=== PATIENT | male | born 1935 | race Caucasian/White ===

== ENCOUNTER → 2016-11-03 | Outpatient (REF) | payer MEDICARE ==
[~2016-11-03] MED LIST: ACET30TAB PO; ASPI81TA85 PO; BISO5TAB5 PO; FEXO180T58 PO; LOSA50TA20 PO; VITA100067 PO; VITA500C24 PO; ZOCO20TA PO
[2016-11-03 11:56] LABS: ALBUMIN 3.9 GM/DL (3.2-5.2); ALBUMIN/GLOBULIN RATIO 1.22 (1.00-1.93); BILIRUBIN,TOTAL 0.6 MG/DL (0.2-1.0); CALCIUM LEVEL 9.1 MG/DL (8.8-10.2); CREATININE FOR GFR 1.46 MG/DL (0.70-1.30); GLOMERULAR FILTRATION RATE 49.2 (>35); POTASSIUM SERUM 4.6 MEQ/L (3.5-5.1); TOTAL PROTEIN 7.1 GM/DL (6.4-8.2)
== END ==
LOC: M SFHCCLAY 07:08
PROVIDERS: ATTEND Family Medicine
DX: E78.00 Pure hypercholesterolemia, unspecified (principal); I10 Essential (primary) hypertension

== ENCOUNTER 2016-12-04 07:03 | Emergency (ER) | payer MEDICARE ==
[~2016-12-04] VITALS: Ht 172.7 cm; Wt 77.3 kg
[2016-12-04] MEDS ORDERED: ZOCO20TA PO (07:16)
[2016-12-04] MEDS ORDERED: LOSA50TA20 PO (07:16)
[2016-12-04] MEDS ORDERED: VITA500C24 PO (07:16)
[2016-12-04] MEDS ORDERED: FEXO180T58 PO (07:16)
[2016-12-04] MEDS ORDERED: BISO5TAB5 PO (07:16)
[2016-12-04] MEDS ORDERED: VITA100067 PO (07:16)
[2016-12-04] MEDS ORDERED: ASPI81TA85 PO (07:16)
--- NOTE | 2016-12-04 08:40 | REP ---
CT abdomen and pelvis without contrast: 12/04/2016. Clinical history: Left lower abdominal pain, question aneurysm. Technique: Noncontrast images with coronal and sagittal reconstructions provided. Findings: CT abdomen: Lung bases show peripheral fibrotic changes bilaterally representing interstitial fibrotic change likely idiopathic pulmonary fibrosis based on this pattern. There is some mild cylindrical bronchiectatic change in both lower lung zones. Heart size not grossly enlarged although the left atrium is. There is no pericardial thickening or effusion. No hiatal hernia. Calcifications in the aortic and mitral valve planes are noted. There is no hepatosplenomegaly, focal hepatic or splenic lesion nor intrahepatic biliary dilatation. The gallbladder shows multiple rim calcified stones, but is not abnormally distended. Common duct not distended. Pancreas without mass, ductal dilatation or other acute finding. Adrenal glands are normal. Kidneys show no hydronephrosis, stone, mass or cyst. There is no hydroureter on the right. There are pelvic phleboliths and indeed a calcification on image 121 of series 201 on the left side is immediately adjacent to but not definitely within the ureter. That ureter is not dilated. Small bowel loops were unremarkable. The aorta shows calcification without aneurysm. There is no periaortic or retroperitoneal pathologic sized lymphadenopathy. Calcified mesenteric node is present in the left mid abdomen on image 99 and 100. There is no evidence of colitis or diverticulitis in the abdomen proper. There are degenerative disc changes with vacuum phenomenon at L3-4 through L5- S1 and old compression deformities from T12-L2, grade 1, all of these without any associated paraspinal hematoma or swelling to suggest acute fracture. There is no spondylolysis or spondylolisthesis but facet arthropathy on both sides of the lower lumbar spine. Visualized ribs intact. CT pelvis: Prostate enlarged and indents the bladder base. The bladder shows no definite wall thickening, mass or stone. No distal ureteral dilatation or stone with a few pelvic phleboliths present. There is no ventral or inguinal hernia nor pathologic sized inguinal adenopathy. No ascites. Visualized small bowel loops and the distal colon through rectosigmoid without colitis or diverticulitis. Bone windows show mild hip degenerative changes. SI joints intact. Pelvis and sacrum without a fracture. Impression: 1. No renal, ureteral or bladder stone and no hydronephrosis. Some perinephric stranding and lower pole cyst on the left. Some minor perinephric stranding of the right nothing acute. 2. Rim-calcified gallstones without biliary dilatation, pancreatic ductal dilatation or other acute finding. 3. Left atrial enlargement but no cardiomegaly or pericardial effusion. 4. Some interstitial pulmonary fibrosis. 5. No colitis, diverticulitis, ascites, adenopathy or other acute finding. Signed by Atul Ybarra MD 12/04/2016 09:12 P
[2016-12-04] MEDS ORDERED: ACET30TAB PO (08:46)
[2016-12-04 09:10] VITALS: BP 142/68
--- NOTE | 2016-12-05 07:44 | ED PDOC ---
Post-Departure Follow-Up radiology report faxed to Fauzia Marr MD Dec 05, 2016 07:44
== END 2016-12-04 09:14 | disposition home or self-care (01) ==
LOC: M ED 07:03
DX: M54.5 Low back pain (principal); I25.2 Old myocardial infarction; Z79.899 Other long term (current) drug therapy; Z79.82 Long term (current) use of aspirin

== ENCOUNTER → 2017-01-19 | Outpatient (REF) | payer MEDICARE ==
[2017-01-19 16:34] LABS: CALCIUM LEVEL 8.7 MG/DL (8.8-10.2); CREATININE FOR GFR 1.35 MG/DL (0.70-1.30); GLOMERULAR FILTRATION RATE 53.9 (>35); POTASSIUM SERUM 4.2 MEQ/L (3.5-5.1)
== END ==
LOC: M SFHCCLAY 13:01
PROVIDERS: ATTEND Family Medicine
DX: I10 Essential (primary) hypertension (principal)
CPT/HCPCS: 80048; G0463

== ENCOUNTER 2017-09-05 09:21 | Observation (INO) | payer MEDICARE ==
[2017-09-05 10:20] LABS: BASO % 0.2 % (0.0-1.0); EOS % 0.4 % (0.0-3.0); HEMATOCRIT 33.8 % (42.0-52.0); HEMOGLOBIN 11.5 g/dl (13.5-17.5); IMMATURE GRANULOCYTE % 0.4 % (0-3.0); LYMPH # 1.2 10^3/uL (1.5-4.5); LYMPH % 11.5 % (24.0-44.0); MEAN CORPUSCULAR HEMOGLOBIN 31.3 pg (27.0-33.0); MEAN CORPUSCULAR VOLUME 91.8 fl (80.0-96.0); MONO # 0.8 10^3/uL (0.0-0.8); NEUTROPHILS # 8.2 10^3/uL (1.8-7.7); NEUTROPHILS % 79.5 % (36.0-66.0); PLATELET COUNT, AUTOMATED 203 10^3/uL (150-450); RED BLOOD COUNT 3.68 10^6/uL (4.30-6.10); RED CELL DISTRIBUTION WIDTH 12.2 % (11.5-14.5); WHITE BLOOD COUNT 10.3 10^3/uL (4.0-10.0)
[2017-09-05 10:29] LABS: BEDSIDE GLUCOSE 121 MG/DL (83-110)
[2017-09-05 11:05] LABS: ANION GAP 5 MEQ/L (8-16); BLOOD UREA NITROGEN 31 MG/DL (7-18); CALCIUM LEVEL 9.1 MG/DL (8.8-10.2); CARBON DIOXIDE LEVEL 27 MEQ/L (21-32); CHLORIDE LEVEL 109 MEQ/L (98-107); CPK CREATINE PHOSPHOKINASE 131 U/L (39-308); CREATININE FOR GFR 1.61 MG/DL (0.70-1.30); GLOMERULAR FILTRATION RATE 43.8 (>35); GLUCOSE, FASTING 106 MG/DL (70-100); POTASSIUM SERUM 5.1 MEQ/L (3.5-5.1); SODIUM LEVEL 141 MEQ/L (136-145); TROPONIN I < 0.02 NG/ML (< 0.10)
[2017-09-05 11:11] LABS: CK-MB VALUE MASS 3.5 NG/ML (<3.6); MB/CK RELATIVE INDEX 2.67 (< OR =4)
[2017-09-05 13:08] LABS: CPK CREATINE PHOSPHOKINASE 105 U/L (39-308); MB/CK RELATIVE INDEX 2.85 (< OR =4); TROPONIN I < 0.02 NG/ML (< 0.10)
[2017-09-05] MEDS ORDERED: ONDANSETRON 4 MG TAB (S0181) PO (16:00)
[2017-09-05] MEDS ORDERED: ONDANSETRON 4MG/2ML VIAL (J2405) IV (16:00)
[2017-09-05] MEDS ORDERED: ACETAMINOPHEN TAB 650MG DOSE (2X325MG) PO (16:00)
[2017-09-05] MEDS: NS 1,000 ML IV (16:31)
[2017-09-05] MEDS: ASPIRIN 81 MG ENTERIC TAB PO (20:02)
[2017-09-05] MEDS: SIMVASTATIN 20 MG TAB PO (20:03)
[2017-09-06 05:57] LABS: BASO % 0.4 % (0.0-1.0); EOS # 0.1 10^3/uL (0.0-0.50); EOS % 1.6 % (0.0-3.0); HEMATOCRIT 31.9 % (42.0-52.0); HEMOGLOBIN 10.9 g/dl (13.5-17.5); IMMATURE GRANULOCYTE % 0.3 % (0-3.0); LYMPH # 1.7 10^3/uL (1.5-4.5); LYMPH % 24.8 % (24.0-44.0); MEAN CORPUSCULAR HEMOGLOBIN 31.3 pg (27.0-33.0); MEAN CORPUSCULAR HGB CONC 34.2 g/dl (32.0-36.5); MEAN CORPUSCULAR VOLUME 91.7 fl (80.0-96.0); MONO # 0.9 10^3/uL (0.0-0.8); MONO % 12.4 % (0.0-5.0); NEUTROPHILS # 4.3 10^3/uL (1.8-7.7); NEUTROPHILS % 60.5 % (36.0-66.0); PLATELET COUNT, AUTOMATED 189 10^3/uL (150-450); RED BLOOD COUNT 3.48 10^6/uL (4.30-6.10); RED CELL DISTRIBUTION WIDTH 12.3 % (11.5-14.5)
[2017-09-06 06:22] LABS: ANION GAP 6 MEQ/L (8-16); BLOOD UREA NITROGEN 26 MG/DL (7-18); CALCIUM LEVEL 8.2 MG/DL (8.8-10.2); CARBON DIOXIDE LEVEL 25 MEQ/L (21-32); CHLORIDE LEVEL 110 MEQ/L (98-107); CREATININE FOR GFR 1.45 MG/DL (0.70-1.30); FREE T4 1.02 NG/DL (0.76-1.46); GLOMERULAR FILTRATION RATE 49.5 (>35); GLUCOSE, FASTING 97 MG/DL (70-100); POTASSIUM SERUM 4.1 MEQ/L (3.5-5.1); SODIUM LEVEL 141 MEQ/L (136-145)
[2017-09-06] MEDS: NS 1,000 ML IV (08:00)
[2017-09-06] MEDS: VITAMIN D 1,000 INTERNATIONAL UNITS TABLET PO (08:38)
[2017-09-06] MEDS: ASCORBIC ACID 500 MG TAB PO (08:38)
[2017-09-06] MEDS: OCUVITE 1 TAB PO (08:38)
[2017-09-06] MEDS: FEXOFENADINE 60 MG TAB PO (08:38)
== END 2017-09-06 13:09 | disposition home or self-care (01) ==
LOC: M ED 09:21 → M ED INP 15:59
DX: R55 Syncope and collapse (principal); I12.9 Hypertensive chronic kidney disease with stage 1 through stage 4 chronic kidney disease, or unspecified chronic kidney disease; N18.3 Chronic kidney disease, stage 3 (moderate); E78.4 Other hyperlipidemia; G32.81 Cerebellar ataxia in diseases classified elsewhere; N17.9 Acute kidney failure, unspecified; R94.6 Abnormal results of thyroid function studies; Z79.82 Long term (current) use of aspirin; Z79.899 Other long term (current) drug therapy
CPT/HCPCS: 71045

== ENCOUNTER → 2017-11-27 | Outpatient (REF) | payer MEDICARE ==
[2017-11-27 11:26] LABS: HEMATOCRIT 35.9 % (42.0-52.0); HEMOGLOBIN 12.1 g/dl (13.5-17.5); MEAN CORPUSCULAR HEMOGLOBIN 31.3 pg (27.0-33.0); MEAN CORPUSCULAR HGB CONC 33.7 g/dl (32.0-36.5); MEAN CORPUSCULAR VOLUME 92.8 fl (80.0-96.0); PLATELET COUNT, AUTOMATED 223 10^3/uL (150-450); RED BLOOD COUNT 3.87 10^6/uL (4.30-6.10); RED CELL DISTRIBUTION WIDTH 11.9 % (11.5-14.5); WHITE BLOOD COUNT 7.9 10^3/uL (4.0-10.0)
[2017-11-27 11:37] LABS: ALBUMIN 3.8 GM/DL (3.2-5.2); ALBUMIN/GLOBULIN RATIO 1.15 (1.00-1.93); ALKALINE PHOSPHATASE 59 U/L (45-117); ALT/SGPT 25 U/L (12-78); ANION GAP 7 MEQ/L (8-16); AST/SGOT 21 U/L (7-37); BILIRUBIN,TOTAL 0.6 MG/DL (0.2-1.0); BLOOD UREA NITROGEN 31 MG/DL (7-18); CALCIUM LEVEL 8.8 MG/DL (8.8-10.2); CARBON DIOXIDE LEVEL 28 MEQ/L (21-32); CHLORIDE LEVEL 108 MEQ/L (98-107); CHOLESTEROL LEVEL 141 MG/DL (<200); CHOLESTEROL RISK RATIO 3.279 (<5); CREATININE FOR GFR 1.71 MG/DL (0.70-1.30); GLOMERULAR FILTRATION RATE 40.9 (>35); GLUCOSE, FASTING 103 MG/DL (70-100); HDL CHOLESTEROL 43 MG/DL (>40); LDL CHOLESTEROL 68.2 MG/DL (<100); NON-HDL-C 98 MG/DL; POTASSIUM SERUM 4.5 MEQ/L (3.5-5.1); SODIUM LEVEL 143 MEQ/L (136-145); TOTAL PROTEIN 7.1 GM/DL (6.4-8.2); TRIGLYCERIDES LEVEL 149 MG/DL (<150)
== END ==
LOC: M SFHCCLAY 07:26
DX: N18.3 Chronic kidney disease, stage 3 (moderate) (principal); G11.9 Hereditary ataxia, unspecified
CPT/HCPCS: 80053

== ENCOUNTER → 2017-12-12 | Outpatient (REF) | payer MEDICARE ==
[2017-12-12 12:18] LABS: ANION GAP 5 MEQ/L (8-16); BLOOD UREA NITROGEN 32 MG/DL (7-18); CALCIUM LEVEL 8.5 MG/DL (8.8-10.2); CARBON DIOXIDE LEVEL 27 MEQ/L (21-32); CHLORIDE LEVEL 106 MEQ/L (98-107); CREATININE FOR GFR 1.53 MG/DL (0.70-1.30); GLOMERULAR FILTRATION RATE 46.5 (>35); GLUCOSE, FASTING 85 MG/DL (70-100); POTASSIUM SERUM 4.6 MEQ/L (3.5-5.1); SODIUM LEVEL 138 MEQ/L (136-145)
== END ==
LOC: M SFHCCLAY 07:50
DX: I12.9 Hypertensive chronic kidney disease with stage 1 through stage 4 chronic kidney disease, or unspecified chronic kidney disease (principal)
CPT/HCPCS: 80048

== ENCOUNTER → 2018-02-21 | Outpatient (REF) | payer MEDICARE ==
[2018-02-21 12:09] LABS: ALBUMIN 3.8 GM/DL (3.2-5.2); ANION GAP 8 MEQ/L (8-16); BLOOD UREA NITROGEN 24 MG/DL (7-18); CALCIUM LEVEL 8.5 MG/DL (8.8-10.2); CARBON DIOXIDE LEVEL 28 MEQ/L (21-32); CHLORIDE LEVEL 101 MEQ/L (98-107); CREATININE FOR GFR 1.58 MG/DL (0.70-1.30); GLOMERULAR FILTRATION RATE 44.8 (>35); GLUCOSE, FASTING 87 MG/DL (70-100); PHOSPHORUS LEVEL 3.1 MG/DL (2.5-4.9); POTASSIUM SERUM 4.3 MEQ/L (3.5-5.1); SODIUM LEVEL 137 MEQ/L (136-145)
== END ==
LOC: M SFHCCLAY 07:43
DX: I12.9 Hypertensive chronic kidney disease with stage 1 through stage 4 chronic kidney disease, or unspecified chronic kidney disease (principal); N18.3 Chronic kidney disease, stage 3 (moderate); Z23 Encounter for immunization
CPT/HCPCS: 80069

== ENCOUNTER → 2018-03-08 | Outpatient (REF) | payer MEDICARE ==
[2018-03-08 11:48] LABS: ANION GAP 7 MEQ/L (8-16); BLOOD UREA NITROGEN 21 MG/DL (7-18); CALCIUM LEVEL 8.7 MG/DL (8.8-10.2); CARBON DIOXIDE LEVEL 28 MEQ/L (21-32); CHLORIDE LEVEL 105 MEQ/L (98-107); CREATININE FOR GFR 1.56 MG/DL (0.70-1.30); GLOMERULAR FILTRATION RATE 45.5 (>35); GLUCOSE, FASTING 91 MG/DL (70-100); POTASSIUM SERUM 4.4 MEQ/L (3.5-5.1); SODIUM LEVEL 140 MEQ/L (136-145)
== END ==
LOC: M SFHCCLAY 07:40
DX: E87.1 Hypo-osmolality and hyponatremia (principal); N18.3 Chronic kidney disease, stage 3 (moderate)
CPT/HCPCS: 80048

== ENCOUNTER 2018-06-26 07:08 | Inpatient (IN) | payer MEDICARE ==
[~2018-06-26] VITALS: Ht 182.9 cm; Wt 72.3 kg
[~2018-06-26 07:08] MED LIST changes: +HYDR12.55 PO; +HYDR25TAB PO; +LOSA100T50 PO; -LOSA50TA20 PO; +LOSA50TA88 PO; +OCUVTAB PO
[2018-06-26 08:02] LABS: BASO % 0.4 % (0.0-1.0); EOS # 0.1 10^3/uL (0.0-0.50); EOS % 0.8 % (0.0-3.0); HEMATOCRIT 36.2 % (42.0-52.0); HEMOGLOBIN 12.1 g/dl (13.5-17.5); LYMPH # 1.3 10^3/uL (1.5-4.5); LYMPH % 15.7 % (24.0-44.0); MEAN CORPUSCULAR HEMOGLOBIN 30.6 pg (27.0-33.0); MEAN CORPUSCULAR HGB CONC 33.4 g/dl (32.0-36.5); MEAN CORPUSCULAR VOLUME 91.4 fl (80.0-96.0); MONO # 0.9 10^3/uL (0.0-0.8); MONO % 10.7 % (0.0-5.0); NEUTROPHILS # 6.1 10^3/uL (1.8-7.7); NEUTROPHILS % 71.9 % (36.0-66.0); PLATELET COUNT, AUTOMATED 208 10^3/uL (150-450); RED BLOOD COUNT 3.96 10^6/uL (4.30-6.10); WHITE BLOOD COUNT 8.5 10^3/uL (4.0-10.0)
[2018-06-26 08:21] LABS: INR 1.04; PROTHROMBIN TIME 13.7 SECONDS (12.1-14.4)
--- NOTE | 2018-06-26 08:21 | REP ---
CHEST, PA AND LATERAL: 06/26/2018. Comparison: AP chest 09/05/2017. Clinical history: Syncope. Findings: Lungs are adequately inflated. There are some interstitial fibrotic changes in the bases, left greater than right. I see no dense consolidation or pleural effusion. Some emphysematous changes are noted in the mid and upper lung zones. There is some apical pleural scarring, right greater than left. Heart not grossly enlarged. No vascular redistribution or edema. Pulmonary arteries are prominent centrally suggesting pulmonary artery hypertension. Calcified aorta without aneurysm. Airway intact. Bony thorax shows no focal lesion. Impression: 1. 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 Fibrotic changes, heavier in the left than right base. No dense consolidation, effusion or edema. Electronically Signed by Atul Ybarra MD 06/26/2018 09:11 P
[2018-06-26 08:22] LABS: PARTIAL THROMBOPLASTIN TIME 28.1 SECONDS (25.4-37.6)
[2018-06-26 08:26] LABS: BLOOD UREA NITROGEN 23 MG/DL (7-18); CALCIUM LEVEL 8.3 MG/DL (8.8-10.2); CARBON DIOXIDE LEVEL 26 MEQ/L (21-32); CHLORIDE LEVEL 107 MEQ/L (98-107); CPK CREATINE PHOSPHOKINASE 152 U/L (39-308); CREATININE FOR GFR 1.46 MG/DL (0.70-1.30); FREE T4 1.05 NG/DL (0.76-1.46); GLUCOSE, FASTING 127 MG/DL (70-100); MAGNESIUM LEVEL 2.3 MG/DL (1.8-2.4); MB/CK RELATIVE INDEX 1.45 (< OR =4); POTASSIUM SERUM 4.9 MEQ/L (3.5-5.1); SODIUM LEVEL 138 MEQ/L (136-145); TROPONIN I < 0.02 NG/ML (< 0.10)
--- NOTE | 2018-06-26 08:58 | REP ---
CT Head without contrast HISTORY: Trauma COMPARISON: 09/05/2017 Areas of decreased attenuation are present in the periventricular and subcortical white matter. This represents small-vessel ischemic disease. There is no intraparenchymal hemorrhage, acute infarct, mass or midline shift. The ventricular system and cortical sulci as well as subarachnoid space in the posterior fossa are dilated consistent with mild volume loss. There is no extra cerebral collection. There is no fracture. The visualized sinuses are clear. IMPRESSION: 1. Small vessel ischemic disease. 2. Mild volume loss. Electronically Signed by Lyle Ortega MD 06/26/2018 08:50 A
--- NOTE | 2018-06-26 08:58 | REP ---
CT cervical spine without contrast HISTORY: Trauma COMPARISON: MR 03/22/2015 A congenital block vertebra is present at the C2-3 level. There is no acute fracture or subluxation. Disc bulges with associated osteophyte formation are present at the C3-4 through C6-7 levels. There is minimal narrowing of the spinal canal. Uncinate process and/or facet hypertrophy are present at the C2-3 through C7-C1 levels. These findings produce minimal to moderate narrowing of the neural foramina. The C3-4 through C7-T1 intervertebral discs are decreased in height consistent with disc degeneration. There are 3 mm of anterior subluxation of C7 on T1. IMPRESSION: 1. There is no acute fracture or subluxation. 2. There is cervical spondylosis at the C2-3 through C7-T1 levels. Electronically Signed by Lyle Ortega MD 06/26/2018 08:49 A
--- NOTE | 2018-06-26 16:19 | REP ---
CAROTID DUPLEX ULTRASOUND: 06/26/2018. Clinical history: Syncope. Findings: No prior study. Standard duplex techniques utilized. The right common carotid shows some proximal mixed plaque with scattered plaque elsewhere. This plaque is in the mid course of the common carotid. At the bulb there is some mild circumferential mixed plaque without shadowing. Some of this extends into the proximal right ICA. The left common carotid also shows some intimal thickening. There is some mixed plaque at the bulb and extending into the proximal ICA and ECA. Peak velocities: CCA systolic: Right 1.34 M/S, left 0.81 M/S ICA systolic: Right 0.51 M/S, left 0.60 M/S ICA systolic: Right 0.21 M/S, left 0.20 M/S ECA systolic: Right 0.70 M/S, left 0.26 M/S ICA/CCA ratio: Right 0.61, left 0.98. Cranial directional of flow is seen in both vertebral arteries. There is tortuosity of the proximal left ICA. The left ICA distally is not seen due to a very high bifurcation. Doppler waveform analysis shows no significant spectral broadening or filling in of the systolic window for either internal carotid artery. Impression: 1. There is bilateral mild carotid disease, less than 50% stenosis by velocity and waveform criteria. This is not considered hemodynamically significant or flow restricting. There are some areas with mixed plaque at the bulb and into the ICA on each side. 2. Cranial direction of flow in the vertebral arteries. Electronically Signed by Atul Ybarra MD 06/26/2018 09:26 P
[2018-06-26 17:03] VITALS: BP 142/68
[2018-06-26] MEDS: VITAMIN D 1,000 INTERNATIONAL UNITS TABLET PO SCH (17:08)
[2018-06-26] MEDS: ASCORBIC ACID 500 MG TAB PO SCH (17:08)
[2018-06-26] MEDS ORDERED: SLF 3 ML SYR IV PRN (17:45)
[2018-06-26] MEDS: FEXOFENADINE 60 MG TAB PO SCH (19:07)
[2018-06-26] MEDS: SIMVASTATIN 20 MG TAB PO SCH (19:39)
[2018-06-26 20:00] VITALS: BP 135/71
[2018-06-26] MEDS: SLF 3 ML SYR IV SCH (21:24)
--- NOTE | 2018-06-26 22:37 | ECGEPIP ---
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 Electronically Signed On 06-26-2018 22:36:39 EST by Db Moyer
[2018-06-27] VITALS (7 sets, daily range): BP systolic 108–142; BP diastolic 57–69
[2018-06-27 05:32] LABS: HEMATOCRIT 36.2 % (42.0-52.0); HEMOGLOBIN 12.1 g/dl (13.5-17.5); MEAN CORPUSCULAR HEMOGLOBIN 30.3 pg (27.0-33.0); MEAN CORPUSCULAR HGB CONC 33.4 g/dl (32.0-36.5); MEAN CORPUSCULAR VOLUME 90.5 fl (80.0-96.0); PLATELET COUNT, AUTOMATED 231 10^3/uL (150-450); WHITE BLOOD COUNT 8.9 10^3/uL (4.0-10.0)
[2018-06-27] MEDS: SLF 3 ML SYR IV SCH ×3 (05:40→19:32)
[2018-06-27 05:43] LABS: CALCIUM LEVEL 8.4 MG/DL (8.8-10.2); CREATININE FOR GFR 1.43 MG/DL (0.70-1.30); GLOMERULAR FILTRATION RATE 50.2 (>35); POTASSIUM SERUM 4.6 MEQ/L (3.5-5.1)
--- NOTE | 2018-06-27 07:15 | CR ---
DATE OF CONSULTATION: 06/26/2018 REFERRING PHYSICIAN: Jenny Maza DO REASON FOR CONSULTATION: Episodes of passing out. HISTORY OF PRESENT ILLNESS: Lyle Wood is an 83-year-old man with history hereditary cerebellar atrophy who was seen at our office in [id number]. His testing reveals cerebellar atrophy and he was referred to [facility] and visits there for 1-2 years with further testing that concluded that his cerebellar atrophy was hereditary / congenital. The patient has an episode of passing out in September 2017. It was during chemotherapy for his . He was sitting next to her when he started feeling dizzy and lightheaded and then slumped over to right side. He was unresponsive. He was pale. Nurse at the infusion center laid him back in a chemotherapy chair and checked his blood pressure. His blood pressure was thought to be low at that time better. There was no documentation of how low it was at that time. This morning the patient woke up and took a shower at 5 in the morning. His was in the kitchen making breakfast. Patient shaved and as he went to hang his towel over he passed out without warning. His heard a thump and reached him within in a minute. She found him unconscious. His unconsciousness lasted for 5-7 minutes. He was incontinent of his urine and bowel. did not see first minute of his loss of consciousness episode, so it i snot truly known if he had stiffness of shaking of his body. He denies any headaches, neck or back pain. This episode lasted longer and he had incontinence of his bladder and bowel. The patient uses a cane at baseline due to his ataxic gait from cerebellar atrophy. PAST MEDICAL HISTORY: Hypertension, dyslipidemia, cerebellar atrophy and ataxia, tonsillectomy, cataract surgery. FAMILY HISTORY: Significant for hypertension, coronary artery disease, ataxia, congestive heart failure, schizophrenia. SOCIAL HISTORY: He lives with his . He denies smoking. He drinks two or three glasses of wine per week. HOME MEDICATIONS: Zocor 20 mg p.o. daily, Emma 180 mg. Daily. ALLERGIES: None. REVIEW OF SYSTEMS: All systems were reviewed and found to be noncontributory. PHYSICAL EXAMINATION: Temperature 98.6, blood pressure 142/68, respiratory 20, pulse 85. Heart: Regular rate and rhythm. Lungs: Clear to auscultation. Abdomen: Soft, nontender, nondistended. No pedal edema. No musculoskeletal abnormalities. No rash. No signs of meningeal irritation. No tremor. He has mild dysmetria bilaterally. No nystagmus. The patient is awake, alert, oriented to place, person and time. No normal speech comprehension and repetition. Extraocular muscles are intact. No facial weakness. Tongue and uvula are midline. 5/5 strength in all four extremities. Deep tendon flexes 2+ throughout. His gait is ataxic and wide-based. There is no nystagmus. Visual elias are full to confrontation. Recent and distant memory is intact. DIAGNOSTIC STUDIES: CT scan of his head was reviewed and showed moderate cerebellar atrophy, mild cerebral atrophy, mild small-vessel ischemic disease of brain. CT scan of cervical spine showed multilevel cervical spondylosis. Carotid ultrasound showed less than 50% bilateral carotid artery stenosis. ASSESSMENT: 1. Episodes of loss of consciousness. 2. Etiology of his current episode of loss of conscious is not known but his first episode in September 2017, was likely vasovagal syncope. 3. There is concern for seizure. 4. Hereditary cerebellar atrophy and ataxia. 5. Less than 50% bilateral carotid artery stenosis. PLAN: 1. EEG. 2. Consider Keppra 250 mg by mouth twice a day and it can be increased to 5 mg by mouth twice a day, baseline creatinine is 1.46. 3. Seizure precautions, including no driving for 6 months. 4. Follow with our office in 2-4 weeks after hospital discharge.
--- NOTE | 2018-06-27 07:45 | ECGEPIP ---
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
[2018-06-27] MEDS: FEXOFENADINE 60 MG TAB PO SCH (09:08)
[2018-06-27] MEDS: VITAMIN D 1,000 INTERNATIONAL UNITS TABLET PO SCH (09:08)
[2018-06-27] MEDS: ASCORBIC ACID 500 MG TAB PO SCH (09:09)
[2018-06-27] MEDS: SIMVASTATIN 20 MG TAB PO SCH (19:32)
[2018-06-27] MEDS: levETIRAcetam 250MG TABLET (KEPPRA) PO SCH (19:32)
--- NOTE | 2018-06-27 20:34 | IPNPDOC ---
Subjective Date Seen The patient was seen on 06/27/18. Subjective Chief Complaint/HPI Patient denies any symptoms today. Never had any symptoms prior to previous syncope. No lightheadedness, chest pain, shortness of breath today. Tolerating oral intake and been walking to bathroom. No other concerns. Constitutional: Denies: Chills, Fever ENT: Denies: Head Aches Pulmonary: Denies: Dyspnea Cardiovascular: Denies: Chest Pain Gastrointestinal: Denies: Abdominal Pain Objective Physical Examination General Exam: Positive: Alert, Cooperative Eye Exam: Positive: PERRLA, Conjunctiva & lids normal ENT Exam: Positive: Mucous membr. moist/pink, Pharynx Normal Neck Exam: Positive: Supple Chest Exam: Positive: Clear to auscultation; Negative: Wheezing Heart Exam: Positive: Rate Normal; Negative: Murmurs Abdomen Exam: Positive: Normal bowel sounds, Soft; Negative: Tenderness Skin Exam: Negative: Rash Neuro Exam: Positive: Normal Speech Psych Exam: Positive: Mental status NL, Mood NL Assessment /Plan Problems (1) Syncope Status: Acute Problem Text: Patient has had a couple episodes of syncope. Head CT no acute abnormality. ECHO taken, result pending. EEG ordered for possible seizure activity. Patient had no symptoms prior but monitor for lightheadedness, chest pain, shortness of breath. (2) Seizure Problem Text: Neuro consulted. May be possible cause of syncope. Recommend start Keppra by neuro. Starting renal dose 250 mg BID, as recommended by neuro. (3) Hypertension Problem Text: I'm holding his home bisoprolol because of bradycardia; will monitor BP. (4) Hyperlipemia Status: Chronic Problem Text: Continue simvastatin. (5) CKD (chronic kidney disease), stage III Status: Chronic Problem Text: Continue to monitor. Plan/VTE VTE Prophylaxis Ordered?: No (encourage ambulation) VS, I&O, 24H, Fishbone Vital Signs/I&O Vital Signs Date Time Temp Pulse Resp B/P (MAP) Pulse Ox O2 Delivery O2 Flow Rate FiO2 06/27/18 19:34 98.3 79 18 142/66 (91) 98 06/26/18 09:00 Room Air I&O- Last 24 Hours up to 6 AM 06/27/18 06:00 Intake Total 0 ml Output Total 300 ml Balance -300 ml Laboratory Data 24H LABS Laboratory Tests 2 06/27/18 04:46: Nucleated Red Blood Cells % (auto) 0.0, Anion Gap 8, Glomerular Filtration Rate 50.2, Blood Urea Nitrogen 26H, Creatinine 1.43H, Sodium Level 141, Potassium Level 4.6, Chloride Level 107, Carbon Dioxide Level 26, Calcium Level 8.4L CBC/BMP Laboratory Tests 06/27/18 04:46 Red Blood Count 4.00 L, Mean Corpuscular Volume 90.5, Mean Corpuscular Hemoglobin 30.3, Mean Corpuscular Hemoglobin Concent 33.4, Red Cell Distribution Width 12.0, Calcium Level 8.4 L GME ATTESTATION GME ATTESTATION My faculty preceptor for this patient encounter was physically present during the encounter and was fully available. All aspects of the patient interview, examination, medical decision making process, and medical care plan development were reviewed and approved by the faculty preceptor. The faculty preceptor is aware and concurs with the plan as stated in the body of this note and will attest to such by his/her cosignature. JERICA LAUGHLIN DO Jun 27, 2018 20:34
--- NOTE | 2018-06-28 00:39 | HPEPDOC ---
General Date of Admission Jun 26, 2018 at 14:17 Primary Care Physician: Dion Cooley MD Attending Physician: PAMELA ANDERSEN DO Chief Complaint The patient is a 83-year-old male admitted with a reason for visit of Syncope. Source: Patient, Family History of Present Illness Patient was brought to the ED after he lost consciousness at home around 5:30 this a.m. He states that he had gotten out of the shower, shaved, and turned to hang up his towel. Without warning, he passed out. was home and heard him fall; she found him unconscious on the floor, and estimates that he was unconscious for about 10 minutes. During this time he lost control of his bowels and bladder. Both he and his agree that he was confused and had a long transition to being fully awake. Prior to this, he only lost consciousness once, in September of last year; it was felt at that time to be vasovagal in nature. Home Medications Scheduled Ascorbic Acid (Vitamin C) 500 Mg Cap, 500 MG PO DAILY, (Reported) Bisoprolol Fumarate (Bisoprolol Fumarate) 5 Mg Tab, 5 MG PO DAILY, (Reported) Fexofenadine Hydrochloride (Fexofenadine HCl) 180 Mg Tab, 180 MG PO DAILY, (Reported) Simvastatin (Zocor) 20 Mg Tab, 20 MG PO QPM, (Reported) Vitamin D (Vitamin D) 1,000 Unit Cap, 1,000 UNIT PO DAILY, (Reported) Allergies Coded Allergies: No Known Drug Allergy (Unverified Allergy, Unknown, UNKNOWN, 08/07/12) Past Medical History Medical History arthritis, HTN, hyperlipidemia, ataxia (after workup, felt to be cerebellar atro phy), hyponatremia. 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 At baseline, he ambulates with a cane. He can not climb a flight of stairs because of "balance problems," but denies dyspnea or pain. Review of Systems Constitutional: Denies: Chills, Fever ENT: Denies: Sinus Congestion, Post Nasal Drip, Sore Throat Skin: Denies: Rash Pulmonary: Denies: Dyspnea, Cough Cardiovascular: Denies: Chest Pain Gastrointestinal: Denies: Nausea, Vomiting, Diarrhea, Constipation Neurological: Reports: Incoordination, Other Symptoms (no dizziness) Psych: Reports: Mood Normal Physical Examination General Exam: Positive: Alert, Cooperative Eye Exam: Positive: Conjunctiva & lids normal ENT Exam: Positive: Atraumatic Chest Exam: Positive: Clear to auscultation, Normal air movement Heart Exam: Positive: Rate Normal Abdomen Exam: Positive: Normal bowel sounds, Soft; Negative: Tenderness Extremity Exam: Negative: Edema Skin Exam: Positive: Nl turgor and temperature Neuro Exam: Negative: Normal Gait (ambulates with device) Psych Exam: Positive: Mental status NL Vital Signs Vital Signs Date Time Temp Pulse Resp B/P (MAP) Pulse Ox O2 Delivery O2 Flow Rate FiO2 06/27/18 19:34 98.3 79 18 142/66 (91) 98 06/26/18 09:00 Room Air Laboratory Data Labs 24H Laboratory Tests 2 06/27/18 04:46: Nucleated Red Blood Cells % (auto) 0.0, Anion Gap 8, Glomerular Filtration Rate 50.2, Blood Urea Nitrogen 26H, Creatinine 1.43H, Sodium Level 141, Potassium Level 4.6, Chloride Level 107, Carbon Dioxide Level 26, Calcium Level 8.4L CBC/BMP Laboratory Tests 06/27/18 04:46 Red Blood Count 4.00 L, Mean Corpuscular Volume 90.5, Mean Corpuscular Hemoglobin 30.3, Mean Corpuscular Hemoglobin Concent 33.4, Red Cell Distribution Width 12.0, Calcium Level 8.4 L Problems (1) Loss of consciousness Problem Text: This sounds more concerning for seizure activity than his event in September, though I'm not certain . Neurology consulted, and EEG ordered per their recommendation. Seizure precautions ordered. He had a cardiac workup including echo 9 months ago; I am evaluating his carotid arteries. I'm also holding beta-patti in case it is contributing. (2) Hypertension Problem Text: I'm holding his home bisoprolol because of bradycardia; will monitor BP. (3) Hyperlipemia Status: Chronic Problem Text: Continue simvastatin. (4) CKD (chronic kidney disease), stage III Status: Chronic Problem Text: Continue to monitor. Plan / VTE VTE Prophylaxis Ordered?: Yes PAMELA ANDERSEN DO Jun 28, 2018 00:39
[2018-06-28 04:45] VITALS: BP 105/59
[2018-06-28] MEDS: SLF 3 ML SYR IV SCH (05:11)
[2018-06-28 06:00] LABS: HEMATOCRIT 34.1 % (42.0-52.0); HEMOGLOBIN 11.6 g/dl (13.5-17.5); MEAN CORPUSCULAR HEMOGLOBIN 30.8 pg (27.0-33.0); MEAN CORPUSCULAR VOLUME 90.5 fl (80.0-96.0); PLATELET COUNT, AUTOMATED 199 10^3/uL (150-450); RED BLOOD COUNT 3.77 10^6/uL (4.30-6.10)
[2018-06-28 06:21] LABS: CALCIUM LEVEL 8.4 MG/DL (8.8-10.2); CREATININE FOR GFR 1.4 MG/DL (0.70-1.30); GLOMERULAR FILTRATION RATE 51.4 (>35); POTASSIUM SERUM 4.4 MEQ/L (3.5-5.1)
[2018-06-28 08:00] VITALS: BP 117/62
[2018-06-28] MEDS ORDERED: KEPP250T5 PO (08:20)
[2018-06-28] MEDS: levETIRAcetam 250MG TABLET (KEPPRA) PO SCH (10:24)
[2018-06-28] MEDS: FEXOFENADINE 60 MG TAB PO SCH (10:24)
[2018-06-28] MEDS: ASCORBIC ACID 500 MG TAB PO SCH (10:24)
[2018-06-28] MEDS: VITAMIN D 1,000 INTERNATIONAL UNITS TABLET PO SCH (10:24)
[2018-06-28 11:31] VITALS: BP 117/69
--- NOTE | 2018-06-28 20:05 | DS.PDOC ---
Discharge Summary General Date of Admission Jun 26, 2018 at 14:17 Date of Discharge Jun 28, 2018 Primary Care Physician: Dion Cooley MD Attending Physician: PAMELA ANDERSEN DO Discharge Summary PROCEDURES PERFORMED DURING STAY: EEG. ADMITTING DIAGNOSES: 1. Syncope 2. HTN 3. CKD DISCHARGE DIAGNOSES: 1. Syncope 2. Seizure activity 3. HTN 4. CKD COMPLICATIONS/CHIEF COMPLAINT: Syncope. HISTORY OF PRESENT ILLNESS: Patient presented to the ER on morning of admission due to Syncope. Patient passed out in the bathroom after shaving after a shower. found him on the floor and estimates being passed out for about 10 minutes. He lost bowel and bladder at this time. After patient gained consciousness his mentioned that patient was confused and this lasted for sometime. Unsure how long patient was confused. Patient did have previous Syncope a year ago that was attributed to vasovagal cause. HOSPITAL COURSE: Patient had work up for Syncope. A head CT did not reveal any acute cause. A Duplex Carotid did not show any cause for syncope. While hosp italized patient was consulted by Neurology. Dr. Yan recommended that patient start Keppra for possible seizure activity. Patient was started on renal dosed Keppra. An EEG was performed on day of discharge. The result is pending at this time. Patient did not have any symptoms of chest pain, lightheadedness, shortness of breath. Patient remained aware of what is going on and no confusion periods. He also did not have any seizure like activity. Patient was discharged with plan of following up with neurology outpatient. Continue use of Keppra at 250 mg BID. . DISCHARGE MEDICATIONS: Please see below. ALLERGIES: Please see below. PHYSICAL EXAMINATION ON DISCHARGE: VITAL SIGNS: Please see below. GENERAL: Cooperative. HEENT: Atraumatic. NECK: Supple. CARDIOVASCULAR EXAMINATION: Normal s1, s2. RESPIRATORY EXAMINATION: Clear to auscultation. ABDOMINAL EXAMINATION: Soft, nondistended. EXTREMITIES: No lower extremity edema. SKIN: No rashes, lesions. NEUROLOGICAL EXAMINATION: Normal speech. PSYCHIATRIC EXAMINATION: Normal affect. LABORATORY DATA: Please see below. IMAGING: Head CT 1. Small vessel ischemic disease. 2. Mild volume loss. Chest radiograph COPD with basilar fibrosis, left greater than right with pulmonary artery hypertension, emphysematous changes in the upper lung zones. Fibrotic changes, heavier in the left than right base. No dense consolidation, effusion or edema. Cervical Spine CT 1. There is no acute fracture or subluxation. 2. There is cervical spondylosis at the C2-3 through C7-T1 levels. Carotid Duplex 1. There is bilateral mild carotid disease, less than 50% stenosis by velocity and waveform criteria. This is not considered hemodynamically significant or flow restricting. There are some areas with mixed plaque at the bulb and into the ICA on each side. 2. Cranial direction of flow in the vertebral arteries. PROGNOSIS: Stable ACTIVITY: As tolerated. DIET: Regular DISCHARGE PLAN: Home DISPOSITION: Home, Self-Care. DISCHARGE INSTRUCTIONS: 1. Follow up with PCP in the next week 2. Follow up with neurology in the next 2-4 weeks 3. Continue with Keppra 250 mg BID ITEMS TO FOLLOWUP ON ON OUTPATIENT: 1. EEG DISCHARGE CONDITION: Stable. TIME SPENT ON DISCHARGE: Greater than 30 minutes. Vital Signs/I&Os Vital Signs Date Time Temp Pulse Resp B/P (MAP) Pulse Ox O2 Delivery O2 Flow Rate FiO2 06/28/18 11:31 97.2 71 18 117/69 (85) 100 06/26/18 09:00 Room Air I&O- Last 24 Hours up to 6 AM 06/28/18 06:00 Intake Total 1340 ml Output Total 675 ml Balance 665 ml Laboratory Data Labs 24H Laboratory Tests 2 06/28/18 05:16: Nucleated Red Blood Cells % (auto) 0.0, Anion Gap 6L, Glomerular Filtration Rate 51.4, Blood Urea Nitrogen 25H, Creatinine 1.40H, Sodium Level 140, Potassium Level 4.4, Chloride Level 107, Carbon Dioxide Level 27, Calcium Level 8.4L CBC/BMP Laboratory Tests 06/28/18 05:16 Red Blood Count 3.77 L, Mean Corpuscular Volume 90.5, Mean Corpuscular Hemoglobin 30.8, Mean Corpuscular Hemoglobin Concent 34.0, Red Cell Distribution Width 12.3, Calcium Level 8.4 L Discharge Medications Scheduled Ascorbic Acid (Vitamin C) 500 Mg Cap, 500 MG PO DAILY, (Reported) Fexofenadine Hydrochloride (Fexofenadine HCl) 180 Mg Tab, 180 MG PO DAILY, (Reported) Levetiracetam (Keppra) 250 Mg Tab, 250 MG PO BID Simvastatin (Zocor) 20 Mg Tab, 20 MG PO QPM, (Reported) Vitamin D (Vitamin D) 1,000 Unit Cap, 1,000 UNIT PO DAILY, (Reported) Allergies Coded Allergies: No Known Drug Allergy (Unverified Allergy, Unknown, UNKNOWN, 08/07/12) GME ATTESTATION GME ATTESTATION My faculty preceptor for this patient encounter was physically present during the encounter and was fully available. All aspects of the patient interview, examination, medical decision making process, and medical care plan development were reviewed and approved by the faculty preceptor. The faculty preceptor is aware and concurs with the plan as stated in the body of this note and will attest to such by his/her cosignature. JERICA LAUGHLIN DO Jun 28, 2018 20:05
--- NOTE | 2018-06-29 10:27 | EEG ---
DATE OF PROCEDURE: 06/28/2018 REFERRING PHYSICIAN: Dr. Jenny Maza. DIAGNOSIS: Episodes of loss of consciousness, concern for seizures. EEG N0.: 19-35 HISTORY: The patient is an 83-year-old man with history of cerebellar atrophy and ataxia who was admitted at [facility] after an episode of passing out, lasting for 5 - 7 minutes with incontinence of bowel and bladder. He had another episode in 2018. This EEG was done to rule out epileptic potential. He is currently taking simvastatin, Keppra, Emma, etc. TECHNICAL DESCRIPTION: This digital EEG was recorded by 21 scalp ear and two EKG electrodes and was reviewed in bipolar and referential montages following reformatting in 10-20 international electrode placement system. INTERPRETATION: Patient was noted to be in awake and drowsy states during this EEG. Resting awake background rhythm consisted of 9 Hz alpha activity measuring 15 - 40 microvolts in amplitude, which was symmetric and reactive to eye opening. Anteriorly low voltage and mixed frequency activity was noted. Attenuation of posterior dominant rhythm was seen during transition into drowsiness. Stage I and II sleep were reviewed and were symmetric bilaterally. Hyperventilation could not be performed. Photic stimulation remained unremarkable. EKG revealed normal sinus rhythm. No focal, lateralizing or epileptiform abnormalities were seen. No relevant clinical activity was noted. CONCLUSION: This EEG in awake, drowsy states, stage I and II sleep is within normal limits.
== END 2018-06-28 16:12 | disposition home or self-care (01) | DRG 101 ==
LOC: M ED 07:08 → M ED INP 14:17 → M PCU 16:44
PROVIDERS: ADMIT Family Medicine; ATTEND Family Medicine
DX: R56.9 Unspecified convulsions (principal); G11.9 Hereditary ataxia, unspecified; I12.9 Hypertensive chronic kidney disease with stage 1 through stage 4 chronic kidney disease, or unspecified chronic kidney disease; E78.5 Hyperlipidemia, unspecified; M19.90 Unspecified osteoarthritis, unspecified site; Z87.891 Personal history of nicotine dependence; N18.3 Chronic kidney disease, stage 3 (moderate); Z79.899 Other long term (current) drug therapy; R55 Syncope and collapse

== ENCOUNTER → 2018-08-28 | Outpatient (REF) | payer MEDICARE ==
[~2018-08-28] MED LIST changes: +ACET-716 PO; -ACET30TAB PO; +KEPP250T5 PO
[2018-08-28 11:12] LABS: HEMATOCRIT 36.1 % (42.0-52.0); HEMOGLOBIN 11.8 g/dl (13.5-17.5); MEAN CORPUSCULAR HEMOGLOBIN 29.8 pg (27.0-33.0); MEAN CORPUSCULAR HGB CONC 32.7 g/dl (32.0-36.5); MEAN CORPUSCULAR VOLUME 91.2 fl (80.0-96.0); PLATELET COUNT, AUTOMATED 233 10^3/uL (150-450); RED BLOOD COUNT 3.96 10^6/uL (4.30-6.10); WHITE BLOOD COUNT 7.1 10^3/uL (4.0-10.0)
[2018-08-28 11:56] LABS: ALBUMIN 3.6 GM/DL (3.2-5.2); CREATININE FOR GFR 1.51 MG/DL (0.70-1.30); FREE T4 0.89 NG/DL (0.76-1.46); GLOMERULAR FILTRATION RATE 47.1 (>35); PHOSPHORUS LEVEL 3.5 MG/DL (2.5-4.9); POTASSIUM SERUM 4.4 MEQ/L (3.5-5.1); THYROID STIMULATING HORMONE 2.28 uIU/ML (0.358-3.740)
== END ==
LOC: M SFHCCLAY 08:52
PROVIDERS: ATTEND Family Medicine
DX: N18.3 Chronic kidney disease, stage 3 (moderate) (principal); R79.89 Other specified abnormal findings of blood chemistry; I10 Essential (primary) hypertension

== ENCOUNTER → 2018-11-27 | Outpatient (REF) | payer MEDICARE ==
[2018-11-27 17:34] LABS: ALBUMIN 3.9 GM/DL (3.2-5.2); CALCIUM LEVEL 9.3 MG/DL (8.8-10.2); CREATININE FOR GFR 1.35 MG/DL (0.70-1.30); GLOMERULAR FILTRATION RATE 53.6 (>35); PHOSPHORUS LEVEL 3.8 MG/DL (2.5-4.9); POTASSIUM SERUM 4.8 MEQ/L (3.5-5.1)
== END ==
LOC: M SFHCCLAY 09:48
PROVIDERS: ATTEND Family Medicine
DX: I10 Essential (primary) hypertension (principal); E87.1 Hypo-osmolality and hyponatremia
CPT/HCPCS: 80069; G0463

== ENCOUNTER → 2019-04-22 | Outpatient (REF) | payer MEDICARE ==
[~2019-04-22] MED LIST changes: -BISO5TAB5 PO; +BISO5TAB9 PO
[2019-04-22 12:03] LABS: ALBUMIN 3.9 GM/DL (3.2-5.2); BILIRUBIN,TOTAL 0.7 MG/DL (0.2-1.0); CHOLESTEROL RISK RATIO 3.161 (<5); CREATININE FOR GFR 1.48 MG/DL (0.70-1.30); GLOMERULAR FILTRATION RATE 48.2 (>35); POTASSIUM SERUM 4.4 MEQ/L (3.5-5.1); TOTAL PROTEIN 7.3 GM/DL (6.4-8.2)
== END ==
LOC: M SFHCCLAY 07:34
PROVIDERS: ATTEND Family Medicine
DX: I10 Essential (primary) hypertension (principal); E78.00 Pure hypercholesterolemia, unspecified

== ENCOUNTER → 2019-05-15 | Outpatient (REF) | payer MEDICARE ==
[2019-05-15 17:29] LABS: HEMATOCRIT 37.4 % (42.0-52.0); HEMOGLOBIN 12.6 g/dl (13.5-17.5); MEAN CORPUSCULAR HEMOGLOBIN 31.7 pg (27.0-33.0); MEAN CORPUSCULAR HGB CONC 33.7 g/dl (32.0-36.5); MEAN CORPUSCULAR VOLUME 94.2 fl (80.0-96.0); PLATELET COUNT, AUTOMATED 239 10^3/uL (150-450); RED BLOOD COUNT 3.97 10^6/uL (4.30-6.10); WHITE BLOOD COUNT 9.3 10^3/uL (4.0-10.0)
== END ==
LOC: M SFHCCLAY 10:36
PROVIDERS: ATTEND Family Medicine
DX: I12.9 Hypertensive chronic kidney disease with stage 1 through stage 4 chronic kidney disease, or unspecified chronic kidney disease (principal); D63.1 Anemia in chronic kidney disease

== ENCOUNTER → 2020-01-20 | Outpatient (REF) | payer MEDICARE ==
[~2020-01-20] MED LIST changes: -ASPI81TA85 PO; +ASPI81TA86 PO; +BISO5TAB14 PO; -BISO5TAB9 PO
[2020-01-20 17:50] LABS: CALCIUM LEVEL 8.9 MG/DL (8.8-10.2); CREATININE FOR GFR 1.42 MG/DL (0.70-1.30); GLOMERULAR FILTRATION RATE 50.4 (>35)
[2020-01-20 17:55] LABS: HEMATOCRIT 39.3 % (42.0-52.0); HEMOGLOBIN 12.7 g/dl (13.5-17.5); MEAN CORPUSCULAR HEMOGLOBIN 30.3 pg (27.0-33.0); MEAN CORPUSCULAR HGB CONC 32.3 g/dl (32.0-36.5); MEAN CORPUSCULAR VOLUME 93.8 fl (80.0-96.0); PLATELET COUNT, AUTOMATED 236 10^3/uL (150-450); RED BLOOD COUNT 4.19 10^6/uL (4.30-6.10); WHITE BLOOD COUNT 8.2 10^3/uL (4.0-10.0)
== END ==
LOC: M SFHCCLAY 16:47
PROVIDERS: ATTEND Family Medicine
DX: I12.9 Hypertensive chronic kidney disease with stage 1 through stage 4 chronic kidney disease, or unspecified chronic kidney disease (principal); N18.3 Chronic kidney disease, stage 3 (moderate)
CPT/HCPCS: 36415; 80048; 85027; G0463

== ENCOUNTER → 2020-05-27 | Outpatient (CLI) | payer MEDICARE ==
--- NOTE | 2020-05-27 11:11 | REP ---
INDICATION: PNEUMONIA LOWER LOBE COMPARISON: 06/26/2018 TECHNIQUE: PA and lateral. FINDINGS: The mediastinum and cardiac silhouette are normal. Small to moderate left lower lobe infiltrate is suspected and requires correlation and follow-up to resolution. No effusion. No pneumothorax. IMPRESSION: Chronic stable changes. Superimposed left lower lobe acute on chronic infiltrate cannot be excluded. Follow-up to resolution recommended. <Electronically signed by Praveen Breaux > 05/27/20 [id number]
== END ==
LOC: M CLY 10:44
PROVIDERS: ATTEND Family Medicine
DX: J18.9 Pneumonia, unspecified organism (principal)
CPT/HCPCS: 71046; G0463

== ENCOUNTER → 2020-07-13 | Outpatient (CLI) | payer MEDICARE ==
[~2020-07-13] MED LIST changes: +HYDR-3490 PO; -HYDR25TAB PO
--- NOTE | 2020-07-13 11:47 | REP ---
INDICATION: J18.9, PNEUMONIA OF LOWER LOBE COMPARISON: 05/27/2020, 05/26/2018 TECHNIQUE: PA and lateral. FINDINGS: Chronic changes primarily involving the lower lobes (left greater than right) are similar to prior examination. While no definite acute process is appreciated, a subtle superimposed infiltrate cannot definitively be excluded. No obvious effusion. No pneumothorax. Visualized portions of the mediastinum and cardiac silhouette are stable. IMPRESSION: Chronic reticulonodular interstitial changes. No definite acute opacity appreciated although subtle superimposed process cannot be excluded. <Electronically signed by Praveen Breaux > 07/13/20 [id number]
== END ==
LOC: M CLY 11:20
PROVIDERS: ATTEND Family Medicine
DX: J18.9 Pneumonia, unspecified organism (principal)
CPT/HCPCS: 71046; G0463

== ENCOUNTER → 2020-07-21 | Outpatient (CLI) | payer MEDICARE ==
--- NOTE | 2020-07-21 17:56 | REPVR ---
PROCEDURE INFORMATION: Exam: MR Head Without Contrast Exam date and time: 07/21/2020 4:38 PM Age: 85 years old Clinical indication: Weakness, extremity; Additional info: Hemiparesis left TECHNIQUE: Imaging protocol: MR of the head without contrast. COMPARISON: MRI-Brain without Contrast 09/16/2013 3:52 PM FINDINGS: Brain: No restricted diffusion within the brain to suggest an acute infarct. There are scattered foci of FLAIR hyperintensity within the cerebral white matter. There is no mass effect or restricted diffusion associated with these foci. In a patient this age, this likely represents chronic small vessel ischemic disease. T2 hyperintensity is identified within the sharad. Differential considerations include chronic ischemic change, demyelination, and osmotic demyelination syndrome. Moderate cerebellar atrophy. Mild nonspecific T2 hyperintensity involving the bilateral globus pallidus, which is a chronic finding compared to the prior study. No intracranial mass effect. No cerebral edema. Cerebral ventricles: There is mild prominence of the ventricles and sulci, compatible with atrophy. Bones/joints: Unremarkable, as visualized. Paranasal sinuses: Mild mucosal thickening of ethmoid air cells bilaterally. Mastoid air cells: No mastoid effusion. Orbital cavity: Bilateral orbital lens implants. Soft tissues: Unremarkable, as visualized. IMPRESSION: 1. No acute infarct. 2. Mild white matter disease, likely representing chronic small vessel ischemic disease. 3. T2 hyperintensity is identified within the sharad, which has progressed. Differential considerations include chronic ischemic change, demyelination, and osmotic demyelination syndrome. 4. Atrophy 5. Additional findings described above. Electronically signed by: Oren Nicholson On 07/21/2020 17:56:00 PM
== END ==
LOC: M RAD 15:30
PROVIDERS: ATTEND Family Medicine
DX: G81.94 Hemiplegia, unspecified affecting left nondominant side (principal)

== ENCOUNTER → 2020-08-30 | Outpatient (REF) ==
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
[2020-08-31 17:44] LABS: INFLUENZA A AMPLIFICATION NEGATIVE (NEGATIVE); INFLUENZA B AMPLIFICATION NEGATIVE (NEGATIVE)
== END ==
LOC: M LAB 11:19